=== PATIENT | female | born 1965 | race Caucasian/White ===

== ENCOUNTER → 2018-02-02 | Outpatient (CLI) | payer OTHER ==
[~2018-02-02] MED LIST: BUPRTAB51 PO; EST1 PO; HYDR-5688 PO; NXM/40 PO; SLEEP AID PO
== END | disposition home or self-care (01) ==
LOC: C.CPL 12:41
PROVIDERS: ATTEND Orthopaedic Surgery
DX: M25.562 Pain in left knee (principal)

== ENCOUNTER → 2018-02-05 | Day surgery (SDC) | payer OTHER ==
[2018-02-03 10:32] VITALS: BMI 42.0
--- NOTE | 2018-02-04 15:23 | History and Physical ---
History & Physical Date Feb 04, 2018. Chief Complaint Left Knee Pain History of Present Illness The patient is a 52 year old female with complaints of ongoing left knee pain. She states pain is worse when sitting for long periods. She was unable to have an MRI due to having a pacemaker. CT arthrogram of her knee demonstrated a medial meniscal tear. She did have a cortisone injection with minimal relief of her symptoms. Patient would like to proceed with left knee arthroscopy with partial medial meniscectomy. Review of Systems: Patient denies headaches, sweats, fevers, chills, sore throat , cough, dysphagia, chest pain, sob, n/v/d/c, numbness, tingling, urinary problems, suicidal thoughts. ROS positive for left knee pain and stiffness. Past Medical/Surgical History Past Medical History: -Pacemaker -Bradycardia -FELICE-does use CPAP -GERD -Anxiety -Rheumatoid Arthritis Past Surgical History: -Pacemaker placement -Cesearean Section x 3 -Gastric bypass Social History: -Patient lives in a 1 story home. She is employed and has a desk job. She denies drug use. She occasionally drinks alcohol. She smokes about 12 cigarettes daily. Family History: -Blood clots on maternal side Additional History Hepatic Disease: No Endocrine Disorder: No Kidney Disease: No Hypertension: No Heart Disease: Yes (Pacemaker) Bleeding Tendencies: No Infectious Diseases: No Allergies Coded Allergies: Codeine (Verified Allergy, Unknown, GI UPSET, 02/03/18) Latex1 -Allergic Contact Dermititis (Verified Allergy, Unknown, SKIN IRRITATION, 02/03/18) Home Medications Scheduled Bupropion (Wellbutrin-Xl), 300 MG PO QPM Esomeprazole Magnesium (Nexium), 40 MG PO QPM Estradiol (Estradiol), 1 MG PO QPM [Sleep Aid], 1 TAB PO HS Physical Examination Skin: warm/dry, no rash Eyes: normal inspection, sclerae normal ENT: normal ENT inspection, pharynx normal Head: normocephalic, atraumatic Neck: supple, no adenopathy Respiratory/Chest: lungs clear, normal breath sounds Cardiovascular: regular rate, rhythm, no murmur Extremities: normal inspection, normal range of motion, + pertinent finding Neurologic/Psych: no motor/sensory deficits, alert, oriented x 3 Addiitonal Comments: Left knee imaging-CT arthrogram demonstrates tear of the posterior horn to the medial meniscus Diagnosis Complex tear of the medial meniscus, left knee Plan of Treatment CT arthrogram of her knee shows a medial meniscal tear. Treatment options were discussed with the patient. She has had a cortisone injection into her knee with only mild relief of her symptoms. We Risks, benefits, and alternatives to surgery were discussed with the patient including but not limited due DVT, infection, pain, failure to relieve all symptoms, retear, need for revision surgery, damage to blood vessels, damage to nerves, PE, , risks of anesthesia and patient demonstrated understanding. She would like to proceed with surgery. Plan will be for left knee arthroscopy with partial medial meniscectomy. Surgery is scheduled for 02/05/18 at [facility]. She will follow up in the office post operatively.
[~2018-02-05] VITALS: Ht 162.6 cm; Wt 111.4 kg
[~2018-02-05] MED LIST changes: +ALBUT/IPRATROP 3MG/0.5MG NEB 3 ML VIAL INH ONE; +ATROPINE SULFATE 0.1 MG/ML 5ML SYR IV PRN; +BUPIVACAINE 0.5 % 5 MG/1 ML PF 10ML VIAL ONE; +CEFAZOLIN SOD 2000MG/15 ML IV PUSH ONE; +DEXAMETHASONE SOD INJ 4 MG/ML VIAL ONE; +EpHEDrine SULFATE INJ 50 MG/ML AMP IV PRN; +EpINEphrine HCL INJ 1 MG/ML 1ML SYRINGE ONE; +FENTANYL CITRATE INJ 50 MCG/1 ML 2 ML VIAL IV PRN; +FENTANYL CITRATE INJ 50 MCG/1 ML 2 ML VIAL ONE; +HYDROmorphone INJ 1 MG/ML SYR IV PRN; +LACTATED RINGER'S 1000ML 1,000 ML IV SCH; +LIDOCAINE HCL 2% 2 ML VIAL (20MG/ML) ONE; +MIDAZOLAM HCL 1 MG/ML 2ML VIAL ONE; +ONDANSETRON INJ 2 MG/ML 2 ML VIAL IV PRN; +ONDANSETRON INJ 2 MG/ML 2 ML VIAL ONE; +OXYCODONE HCL IR 5 MG TAB (IMMEDIATE RELEASE) PO PRN; +PROPOFOL IV EMULSION 10 MG/ML 20 ML VIAL ONE; +SUCCINYLCHOLINE CHLORIDE 20 MG/ML 10 ML VIAL IV ONE
[2018-02-05 05:43] VITALS: BP 131/93; PULSE 82; TEMP 36.7; O2SAT 95; Ht 162.6 cm; Wt 111.4 kg
[2018-02-05 06:34] LABS: HEMATOCRIT 39.8 % (37-47); HEMOGLOBIN 13.3 g/dL (12.0-16.0); MEAN CELL VOLUME 93.2 fL (80-100); MEAN CORPUSCULAR HEMOGLOBIN 31.1 pg (25-34); MEAN PLATELET VOLUME 9.6 fL (7.4-10.4); PLATELET COUNT 292 K/uL (130-400); RED CELL DISTRIBUTION WIDTH CV 13.8 % (11.5-14.5); RED CELL DISTRIBUTION WIDTH SD 46.9 fL (36.4-46.3); WHITE BLOOD COUNT 7.23 K/uL (4.8-10.8)
[2018-02-05 06:40] LABS: MEAN CORPUSCULAR HGB CONC 33.4 g/dl (32-36)
--- NOTE | 2018-02-05 06:59 | History & Physical Bridge Note ---
H&P Re-Evaluation Bridge Note: I have examined the patient, reviewed the History & Physical and in the interval since the performance of the History & Physical I have noted the following changes of clinical significance: No changes noted
[2018-02-05 07:03] VITALS: PULSE 73; O2SAT 98
--- NOTE | 2018-02-05 07:36 | Discharge Instructions ---
Discharge Instructions Date of Service Feb 05, 2018. Visit Reason for Visit: Left Knee Medial Meniscus Tear Discharge Discharge Diagnosis / Problem: Left knee medial meniscus tear Discharge Goals Goal(s): Decrease discomfort, Improve function Activity Recommendations Activity Limitations: per Instructions/Follow-up section Anesthesia . Post Anesthesia Instructions: If you have had General Anesthesia or IV Sedation: * Do not drive today. * Resume driving when surgeon permits. * Do not make important decisions or sign legal documents today. * Call surgeon for: 1. Temperature elevations greater than 101 degrees F. 2. Uncontrollable pain. 3. Excessive bleeding. 4. Persistent nausea and vomiting. 5. Medication intolerance (nausea, vomiting or rash). * For nausea and vomiting use only clear liquids such as: tea, soda, bouillon until nausea subsides, then gradually increase diet as tolerated. * If you have any concerns or questions, call your surgeon's office. If physician is unavailable and it is an emergency, call 911 or go to the nearest emergency room. . Instructions / Follow-Up Instructions / Follow-Up ACTIVITY RECOMMENDATIONS: * You may walk on the leg with or without crutches as comfort permits. * Bending of the knee should start at once. * Do not shower for 48 hours following surgery. SPECIAL CARE INSTRUCTIONS: * You may cleanse the skin adjacent to the small wounds with soap and water at the time of the first dressing change. * The application of an ice bag to the front and sides of the knee will decrease swelling and discomfort for the first 48 hours. * The small incisions may be sore and develop bruising. This bruising does not require any special care. SPECIAL PRECAUTIONS: * If you experience unusual pain unrelieved by prescriptions, temperature elevation (100 degrees F. or above) or progressive swelling or bleeding, you should contact our office at for further evaluation. * You may have been prescribed pain medication. If you experience nausea and/or fine skin rash, discontinue this medication and contact our office at for an alternate medication. DRESSING: * Dressing should be comfortable and absorb any leakage of fluid and/or blood. * The dressing may become moist or bloodstained. * Dressing may be removed _48 hours_ after surgery and bandaids placed over the small surgical incisions. If can be removed sooner if it becomes very soiled or loose. * Bandaids may be used over next several days as needed and can be discontinued when there is not further drainage from the wounds. FOLLOW UP VISIT: If appointment is not already scheduled: Please call [facility] to make a follow-up appointment for your surgery at with Dr. Abreu or his PA 10-14 days after your surgery if one is not already scheduled. Diet Recommendations Recommended Home Diet: resume previous diet Procedures Procedures Performed: Left knee arthroscopy with partial medial meniscectomy Pending Studies Studies pending at discharge: no Medical Emergencies . Who to Call and When: Medical Emergencies: If at any time you feel your situation is an emergency, please call 911 immediately. . Non-Emergent Contact Non-Emergency issues call your: Surgeon Call Non-Emergent contact if: temperature is above 101, your pain is not controlled, your pain is worsening, your pain is concerning you, wound has increased drainage, wound has increased redness, wound has increased pain . . "Provider Documentation" section prepared by Steven Barlow. . [place] Drug Monitoring Program Search Results: patient reviewed within database, no issues identified
[2018-02-05] MEDS: LIDOCAINE/EPINEPHRINE 1% 20 ML VIAL ONE ×2 (07:43→07:49)
--- NOTE | 2018-02-05 07:57 | [facility] Operative Report ---
Operative Report Operative Date Feb 05, 2018. Pre-Operative Diagnosis Complex tear of the medial meniscus, left knee Post-Operative Diagnosis same as preop Procedure(s) Performed Left knee arthroscopy with partial medial meniscectomy Surgeon Dr. Cruz Abreu [facility] Surgeon(s) None Estimated Blood Loss 1ML Specimens none per surgeon Drains None Anesthesia Type General Complication(s) none Disposition Recovery Room / PACU Indications The patient is a 52-year-old female who developed a tear of the medial meniscus left knee. She wishes to proceed with arthroscopy. Description of Procedure MRI demonstrated a complex tear of the posterior horn of the medial meniscus. We discussed various treatment measures. The patient wished to proceed with arthroscopic partial lateral meniscectomy. Risks, benefits and alternatives to surgery including, but not limited to, infection, DVT, pain, stiffness, need for revision surgery, failure to relieve all symptoms, damage to blood vessels, damage to nerves, risk of the anesthesia were discussed with the patient and they wished to proceed. The patient was identified. Laterality was confirmed and marked. The patient received a preoperative antibiotic. They were transferred to the operating room and placed in supine position and induced into general endotracheal anesthesia per the anesthesia staff. A well-padded tourniquet was placed on the thigh and the limb was prepped and draped in the usual standard manner with ChloraPrep. The limb was exsanguinated and the tourniquet was inflated. I made a standard anterolateral viewing portal made through a stab incision and bluntly entered the suprapatellar pouch. Then under spinal needle localization I established an anteromedial portal. There was grade [0] cartilage of the patella. There was grade [0] cartilage of the trochlea. There was grade [0] cartilage of the medial femoral condyle. There was grade [0] cartilage of the medial tibial plateau. There was a complex tear of the posterior horn of the medial meniscus. This was debrided back to a stable base utilizing combination of the shaver as well as meniscal biter. The ACL and PCL were probed and were normal. The lateral meniscus was normal. There was grade [0] cartilage of the lateral femoral condyle. There was grade [0] cartilage of the lateral tibial plateau. All of the instrumentation was removed from the knee. The portal sites were closed with nylon. A sterile dressing was applied and the tourniquet was released. All needle and sponge counts were correct at the end of the procedure. The patient was transferred to the PACU in stable condition without apparent complication. I attest to the content of the Intraoperative Record and any orders documented therein. Any exceptions are noted below.
--- NOTE | 2018-02-05 08:33 | Anesthesiology Progress Note ---
Anesthesia Post Op Note Date & Time Feb 05, 2018 at 08:33 Vital Signs Pain Intensity: 0 Vital Signs Past 12 Hours Date Time Temp Pulse Resp B/P (MAP) Pulse Ox O2 Delivery O2 Flow Rate FiO2 02/05/18 08:20 74 12 124/69 98 Oxymask 10 02/05/18 08:10 78 12 125/75 98 Oxymask 10 02/05/18 08:01 36.2 87 28 134/83 98 Oxymask 10 02/05/18 07:03 73 14 98 Room Air 02/05/18 05:43 36.7 82 18 131/93 (106) 95 Room Air Notes Mental Status: alert / awake / arousable, participated in evaluation Pt Amnestic to Procedure: Yes Nausea / Vomiting: adequately controlled Pain: adequately controlled Airway Patency, RR, SpO2: stable & adequate BP & HR: stable & adequate Hydration State: stable & adequate Anesthetic Complications: no major complications apparent
[2018-02-05 08:55] VITALS: BP 124/71; PULSE 72; TEMP 36.5; O2SAT 97
[2018-02-05 09:25] VITALS: BP 121/66; PULSE 76; TEMP 36.6; O2SAT 97
[2018-02-05 09:50] VITALS: BP 120/70; PULSE 77; TEMP 36.5; O2SAT 99
== END | disposition home or self-care (01) ==
LOC: C.ACU 04:53
PROVIDERS: ATTEND Orthopaedic Surgery
DX: S83.232A Complex tear of medial meniscus, current injury, left knee, initial encounter (principal); X58.XXXA Exposure to other specified factors, initial encounter; G47.33 Obstructive sleep apnea (adult) (pediatric); R00.1 Bradycardia, unspecified; K21.9 Gastro-esophageal reflux disease without esophagitis; F41.9 Anxiety disorder, unspecified; M06.9 Rheumatoid arthritis, unspecified; F17.200 Nicotine dependence, unspecified, uncomplicated; F32.9 Major depressive disorder, single episode, unspecified; M19.90 Unspecified osteoarthritis, unspecified site; Z95.0 Presence of cardiac pacemaker; E66.01 Morbid (severe) obesity due to excess calories; Z68.41 Body mass index [BMI] 40.0-44.9, adult; Z88.5 Allergy status to narcotic agent; Z91.040 Latex allergy status